=== PATIENT | male | born 1960 | race Caucasian/White ===

== ENCOUNTER 2020-05-06 14:36 | Outpatient (CLI) | payer MEDICARE, SELFPAY ==
--- NOTE | 2020-05-06 | CT_ITS ---
WS: [id number] CT CHEST TECHNIQUE: Noncontrast CT of the chest with coronal and sagittal reformatted images. CLINICAL INFORMATION: Recurrent pneumonia COMPARISON: CT March 13, 2020 DLP: 965.[address] scans at [facility] use at least one of these dose optimization techniques: automat ed exposure control; mA and/or kV adjustment per patient size (includes targeted exams where dose is matched to clinical indication); or iterative reconstruction. FINDINGS: Moderate chronic emphysematous changes. Tree-in-bud infiltrates throughout the right lung is stable i n appearance. Scattered hazy groundglass infiltrates left upper lobe, lingula and left lower lobe sli ghtly progressed compared to previous. Recommend correlation for pneumonitis. Stable noncalcified nodule in the right upper lobe measuring 6.5 mm. Subpleural nodule right lower lo be may be infectious or inflammatory new from previous measuring 5.8 mm. No mediastinal or hilar lymphadenopathy. Vascular calcification including coronary. Postoperative deyvi nges GE junction. Diffuse fatty filtration the liver. Small esophageal hiatal hernia. Adrenal glands are normal. Fatty atrophy of the pancreas. No axillary lymphadenopathy. CT/CT chest wo con [id number] IMPRESSION: 1. Slightly increased patchy groundglass infiltrates in the left lower lobe la terally, lingula and left upper lobe. Recommend correlation for pneumonitis. 2. Stable tree-in-bud infiltrates throughout the right lung can be seen with a typical infectious or inflammatory endobronchial etiologies. 3. Stable noncalcified nodule right upper lobe measuring 6.5 mm. RECOMMEND 6 M ONTH FOLLOW-UP. 4. New subpleural nodule right lower lobe measuring 5.8 mm. This may be infect ious or inflammatory in etiology. 5. No mediastinal or hilar lymphadenopathy. 6. Prior postoperative changes GE junction with small esophageal hiatal hernia . 7. Fatty infiltration the liver.
== END 2020-05-06 14:37 | disposition home or self-care (01) ==
PROVIDERS: Family Provider Family Medicine; PCP Family Medicine; Visit Provider Internal Medicine Critical Care Medicine
DX: J18.9 Pneumonia, unspecified organism (principal); R91.8 Other nonspecific abnormal finding of lung field; R91.1 Solitary pulmonary nodule; K76.0 Fatty (change of) liver, not elsewhere classified; K44.9 Diaphragmatic hernia without obstruction or gangrene
CPT/HCPCS: 71250

== ENCOUNTER 2020-06-24 11:08 | Outpatient (CLI) | payer MEDICARE, SELFPAY | END 2020-06-24 11:09 | disposition home or self-care (01) | PROVIDERS: Family Provider Family Medicine; PCP Family Medicine; Visit Provider Internal Medicine Critical Care Medicine | DX: J21.9 Acute bronchiolitis, unspecified (principal) | CPT/HCPCS: 86431 ==

== ENCOUNTER → 2020-07-18 07:06 | Outpatient (BNVA) | payer MEDICARE, SELFPAY | PROVIDERS: Family Provider Family Medicine; PCP Family Medicine; Visit Provider Nurse Practitioner Psychiatric/Mental Health | DX: F33.1 Major depressive disorder, recurrent, moderate (principal); F41.1 Generalized anxiety disorder; Z63.79 Other stressful life events affecting family and household | CPT/HCPCS: 99214 ==

== ENCOUNTER → 2020-08-20 07:30 | Outpatient (BNVA) | payer MEDICARE, SELFPAY | PROVIDERS: Family Provider Family Medicine; PCP Family Medicine; Visit Provider Nurse Practitioner Psychiatric/Mental Health | DX: F33.1 Major depressive disorder, recurrent, moderate (principal); F41.1 Generalized anxiety disorder; F43.12 Post-traumatic stress disorder, chronic | CPT/HCPCS: 99213 ==

== ENCOUNTER → 2020-10-15 07:31 | Outpatient (BNVA) | payer MEDICARE, SELFPAY | PROVIDERS: Family Provider Family Medicine; PCP Family Medicine; Visit Provider Nurse Practitioner Psychiatric/Mental Health | DX: F33.1 Major depressive disorder, recurrent, moderate (principal); F41.1 Generalized anxiety disorder; Z63.79 Other stressful life events affecting family and household | CPT/HCPCS: 99213 ==

== ENCOUNTER → 2020-12-16 07:35 | Outpatient (BNVA) | payer MEDICARE, SELFPAY | PROVIDERS: Family Provider Family Medicine; PCP Family Medicine; Visit Provider Nurse Practitioner Psychiatric/Mental Health | DX: F33.1 Major depressive disorder, recurrent, moderate (principal); F41.1 Generalized anxiety disorder; F10.10 Alcohol abuse, uncomplicated | CPT/HCPCS: 99214 ==

== ENCOUNTER → 2020-12-19 13:35 | Outpatient (BNVA) | payer MEDICARE, SELFPAY | PROVIDERS: Family Provider Family Medicine; PCP Family Medicine; Visit Provider Specialist | DX: G43.709 Chronic migraine without aura, not intractable, without status migrainosus (principal); Z87.891 Personal history of nicotine dependence | CPT/HCPCS: 64615; J0585 ==

== ENCOUNTER → 2021-01-07 08:55 | Outpatient (BNVA) | payer MEDICARE, SELFPAY | PROVIDERS: Family Provider Family Medicine; PCP Family Medicine; Visit Provider Specialist | DX: G43.711 Chronic migraine without aura, intractable, with status migrainosus (principal); Z71.89 Other specified counseling; Z87.891 Personal history of nicotine dependence | CPT/HCPCS: 64405; 64450; 99214; J1030; J3490 ==

== ENCOUNTER → 2021-01-16 10:26 | Outpatient (BNVA) | payer MEDICARE, SELFPAY | PROVIDERS: Family Provider Family Medicine; PCP Family Medicine; Visit Provider Specialist | DX: G43.711 Chronic migraine without aura, intractable, with status migrainosus (principal); Z87.891 Personal history of nicotine dependence | CPT/HCPCS: 36415; 96374; 96375; 96376; 99214 ==

== ENCOUNTER 2021-01-21 11:35 | Outpatient (CLI) | payer MEDICARE, SELFPAY | END 2021-01-21 12:35 | disposition home or self-care (01) | LOC: NSACUTE 05-05 14:20 | PROVIDERS: Family Provider Family Medicine; PCP Family Medicine; Visit Provider Specialist | DX: G43.711 Chronic migraine without aura, intractable, with status migrainosus (principal); F11.23 Opioid dependence with withdrawal; F33.1 Major depressive disorder, recurrent, moderate; Z87.891 Personal history of nicotine dependence | CPT/HCPCS: 64405; 99214; J1030; J3490 ==

== ENCOUNTER 2021-01-31 09:16 | Outpatient (CLI) | payer MEDICARE, SELFPAY ==
--- NOTE | 2021-01-31 09:27 | MR_ITS ---
WS: [id number] MRI CERVICAL SPINE NONCONTRAST TECHNIQUE: Sagittal T1, T2 and STIR imaging. Axial T2, gradient, and fiesta imaging. CLINICAL INFORMATION: M54.2 - Cervicalgia COMPARISON: CT cervical spine April 2017 FINDINGS: Straightening of the normal cervical lordosis. Slight reversal. Cord signal is normal. No high-grade central canal stenosis. Prior postoperative changes anterior cervical fusion C3-C4 with interbody fusion. Prior interbody bon y fusion at C5-C7. C2-C3: Mild osteophytic ridging. Mild left and no significant right foraminal narrowing. Mild facet a rthropathy. Spinal canal is patent. C3-C4: Anterior interbody cervical fusion. Moderate to severe left and mild right bony foraminal narr owing. Spinal canal is patent. C4-C5: Osteophytic ridging. Moderate left greater than right bony foraminal narrowing. Mild facet art hropathy. C5-C6: Osteophytic ridging. Mild to moderate left and no significant right foraminal narrowing. Tiny central osteophyte with mild central canal stenosis. C6-C7: Disc osteophytic ridging. Moderate to severe left and mild right bony foraminal narrowing. Spi nal canal is patent. C7-T1: Disc osteophytic ridging. Mild left greater than right bony foraminal narrowing. Spinal canal is patent. Visualized brain stem structures: Normal. Prevertebral soft tissues: Normal. MR/MR cervical spin wo con* [id number] IMPRESSION: 1. Straightening of the normal cervical lordosis with prior anterior interbody cervical fusion C3-4. Chronic bony fusion C5-C7. Alignment appears unchanged s 2016 2. No high-grade central canal stenosis. Cord signal is normal. 3. Mild central canal stenosis at C5-6 due to tiny central osteophyte. 4. Moderate to severe bony foraminal narrowing worse at left C3-C4, left C4-C5 , and left C6-C7.
== END 2021-01-31 09:17 | disposition home or self-care (01) ==
PROVIDERS: PCP Family Medicine; Visit Provider Specialist
DX: M48.02 Spinal stenosis, cervical region (principal); M25.78 Osteophyte, vertebrae; M43.22 Fusion of spine, cervical region
CPT/HCPCS: 72141

== ENCOUNTER → 2021-09-23 16:39 | Outpatient (BNVA) | payer MEDICARE, SELFPAY | PROVIDERS: PCP Family Medicine; Visit Provider Nurse Practitioner | DX: M54.9 Dorsalgia, unspecified (principal) | CPT/HCPCS: 81000 ==

== ENCOUNTER 2023-03-03 15:41 | Emergency (ER) | payer MEDICARE, SELFPAY ==
[2023-03-03] VITALS (9 sets, daily range): BP systolic 103–112; BP diastolic 73–79; PULSE 74–78; RESP 17–21; O2SAT 97–100
--- NOTE | 2023-03-03 15:49 | XRR_ITS ---
PROCEDURE INFORMATION: Exam: XR Chest Exam date and time: 03/03/2023 3:57 PM Age: 62 years old Clinical indication: Shortness of breath; Additional info: Dyspnea/cough TECHNIQUE: Imaging protocol: Radiologic exam of the chest. Views: 1 view. COMPARISON: CR XR chest 2V* [id number] 11/16/2020 9:51 AM FINDINGS: Lungs: There is mild atelectasis/scar in the left lung base. No acute pneumonia or edema. The lung volumes are low. Pleural spaces: Unremarkable. No pleural effusion. No pneumothorax. Heart/Mediastinum: Unremarkable. No cardiomegaly. Bones/joints: There is old fracture of the proximal left humerus. XR/XR chest 1V portable [id number] IMPRESSION: There are no acute concerning abnormalities.
--- NOTE | 2023-03-03 16:07 | ED_ITS ---
HPI - Nausea/Vomiting/Diarrhea General: Chief complaint: Nausea/Vomiting/Diarrhea Stated complaint: N/V Time Seen by Provider: 03/03/23 15:42 Source: patient Mode of arrival: ambulatory History of Present Illness: 62-year-old male who presents to the emergency room with nausea vomiting last couple of weeks. Patient has alcoholic liver cirrhosis and a history of gastric CA which was resected. Recently has had increasing swelling in his abdomen and generalized weakness and decline. He has had bilious vomiting throughout the day today. MD elicited complaint: nausea and vomiting Pertinent past history: other (Alcoholic liver cirrhosis gastric CA with resect ion) Onset (ago): week(s) Description of vomiting: bilious Associated nausea: Yes Associated abdominal pain: Yes Location of pain: Diffuse Pain consistency: intermittent Severity: moderate Quality: cramping Exacerbating factors: none Relieving factors: none Associated symtoms: Reports nausea; Denies anxiety, bloating, change in vision, chest pain, cough, diaphoresis, decreased urine output, dizziness, dysuria, epistaxis, fatigue, fecal incontinence, fevers/chills, headache(s), anorexia, malaise, myalgias, numbness, palpitations, rash, short of breath, syncope, tenesmus, tinnitus or weakness Review of Systems Const: Denies: fever(s), chills, fatigue, malaise or diaphoresis Eyes: Denies: change in vision ENMT: Denies: tinnitus or epistaxis Card: Denies: chest pain, palpitations or syncope Resp: Denies: dyspnea, productive cough or non-productive cough GI: Reports: abdominal pain, nausea and vomiting; Denies: bloating or fecal incontinence : Denies: dysuria Skin/Breast: Denies: rash or pruritus Neuro: Denies: headache(s) or dizziness Psych: Denies: anxiety PFSH ED PFSH: Medical History Alcohol abuse, episodic drinking behavior Last use 12/09/20 B12 deficiency CHF (congestive heart failure), NYHA class III DDD (degenerative disc disease) Depression with anxiety Generalized anxiety disorder History of stomach cancer Major depressive disorder, recurrent episode, moderate with anxious distress Type 2 diabetes mellitus Surgical History H/O knee surgery H/O spinal fusion H/O splenectomy H/O wrist surgery History of pancreatic surgery History of partial gastrectomy Family History Father Cancer Stomach Cancer Grandmother Cancer Stomach Cancer Social History Smoking and tobacco status: former smoker Quit status (tobacco): has quit using tobacco Year quit tobacco: 2009 - 1PPD x 25 Years Alcohol intake: current Alcohol intake frequency: holidays/special occasions only Substance/Drug Use: never Household members: spouse Marital status: Current occupational status: disabled Do you think of yourself as: Straight/Heterosexual Physical Exam Const: GENERAL APPEARANCE: cooperative and comfortable ORIENTATION/CONSCIOUSNESS: Yes awake, Yes oriented to person, Yes oriented to place and Yes oriented to time HENMT: COMMON NORMALS: normocephalic, atraumatic and hearing grossly normal bilaterally HEAD & SCALP: normocephalic and atraumatic Resp: COMMON NORMALS: normal respiratory effort, No retractions, No use of accessory muscles and clear to auscultation bilaterally AUSCULTATION: clear to auscultation bilaterally Cardio: COMMON NORMALS: regular rate, regular rhythm and No murmurs present (Cardio) RATE: regular rate RHYTHM: regular rhythm GI: COMMON NORMALS: Soft to palpation and No hepatosplenomegaly present AUSCULTATION: Yes normoactive bowel sounds PALPATION: Yes Soft to palpation, No Tenderness to palpation present (GI), No Guarding due to palpation present (GI) and Yes No hepatosplenomegaly present Extremity: COMMON NORMALS: normal to inspection, capillary refill normal, no clubbing, cyanosis or edema, no calf tenderness and no pedal edema Neuro: SENSORIUM/ORIENTATION: Yes oriented to person, Yes oriented to place and Yes oriented to time Skin: COMMON NORMALS: no rashes or lesions noted GENERAL SKIN EXAM: no rashes or lesions noted Course Vital Signs: Vital signs: Vital Signs Pulse Rate 74 03/03/23 18:36 Respiratory Rate 18 03/03/23 18:36 Blood Pressure 103/73 03/03/23 18:36 Pulse Oximetry 97 03/03/23 18:36 Oxygen Delivery Me thod Room Air 03/03/23 15:47 MDM - Nausea/Vomiting/Diarrhea Medical Decision Making Labs and imaging reviewed. There is no sign of upper GI bleed at this time. S uspect patient may have some delayed gastric emptying. His symptoms have improved we will discharge him home and make arrangements for an outpatient paracentesis in the future via his primary care doctor as needed. Medical Records I reviewed the patient's medical records. Lab Data I reviewed the patient's lab results. 03/03/23 16:16 03/03/23 16:16 Radiology Impressions Chest X-Ray 03/03/23 15:49 IMPRESSION: There are no acute concerning abnormalities. Laboratory Results WBC 6.1 10^3/uL (4.0-10.0) 03/03/23 16:16 RBC 2.95 10^6/uL (4.1-5.3) L 03/03/23 16:16 Hgb 9.6 g/dL (11.7-16.6) L 03/03/23 16:16 Hct 28.8 % (42.0-52.0) L 03/03/23 16:16 MCV 97.6 fl (80-94) H 03/03/23 16:16 MCH 32.5 pg (28.0-34.0) 03/03/23 16:16 MCHC 33.3 g/dL (30.0-36.0) 03/03/23 16:16 RDW 29.2 % (12.1-15.1) H 03/03/23 16:16 Plt Count 234 10^3/cmm (130-400) 03/03/23 16:16 MPV 11.7 fL (7.4-10.4) H 03/03/23 16:16 Neut % (Auto) 80.0 % 03/03/23 16:16 Lymph % (Auto) 13.3 % 03/03/23 16:16 [place] % (Auto) 6.2 % 03/03/23 16:16 Eos % (Auto) 0.0 % 03/03/23 16:16 Baso % (Auto) 0.2 % 03/03/23 16:16 Neut # (Auto) 4.89 10^3/uL (1.8-7.7) 03/03/23 16:16 Lymph # (Auto) 0.8 10^3/uL (0.8-4.8) 03/03/23 16:16 [place] # (Auto) 0.4 10^3/uL (0.2-0.9) 03/03/23 16:16 Eos # (Auto) 0.0 10^3/uL (0.0-0.8) 03/03/23 16:16 Baso # (Auto) 0.0 10^3/uL (0.0-0.1) 03/03/23 16:16 Nucleated RBC % (auto) 0 % 03/03/23 16:16 Nucleated RBCs # 0.0 /100WBC 03/03/23 16:16 Sodium 137 mmol/L (136-145) 03/03/23 16:16 Potassium 3.7 mmol/L (3.5-5.1) 03/03/23 16:16 Chloride 107 mmol/L (98-107) 03/03/23 16:16 Carbon Dioxide 18 mmol/L (22-29) L 03/03/23 16:16 Anion Gap 15.7 (5-19) 03/03/23 16:16 BUN 16 mg/dL (8-23) 03/03/23 16:16 Creatinine 0.9 mg/dL (0.7-1.2) 03/03/23 16:16 GFR Calculation 85.0 mL/min (90-130) L 03/03/23 16:16 Glucose 120 mg/dL (65-115) H 03/03/23 16:16 Calculated Osmolality 286 mOsm/kg (285-295) 03/03/23 16:16 Calcium 7.7 mg/dL (8.5-10.5) L 03/03/23 16:16 Total Bilirubin 1.3 mg/dL (0.15-1.2) H 03/03/23 16:16 AST 27 U/L (0-40) 03/03/23 16:16 ALT 27 U/L (0-41) 03/03/23 16:16 Alkaline Phosphatase 145 U/L (40-130) H 03/03/23 16:16 Ammonia 32 umol/L (16-60) 03/03/23 17:03 Total Protein 6.2 g/dL (6.6-8.7) L 03/03/23 16:16 Albumin 2.8 g/dL (3.5-5.2) L 03/03/23 16:16 Globulin 3.4 g/dL (1.3-4.6) 03/03/23 16:16 Discharge Plan Discharge Patient Disposition: Home Clinical Impression: Nausea & vomiting, Alcoholic cirrhosis of liver Condition: Stable Prescriptions: New promethazine 12.5 mg tablet 12.5 mg PO Q6H PRN (Reason: nausea and vomiting) Qty: 14 0RF No Action lidocaine 4 % Adhesive Patch,Medicated 1 patch TOPICAL DAILY loperamide 2 mg capsule 2 mg PO QID PRN (Reason: Diarrhea) naloxone [Narcan] 0.4 mg/mL Solution 0.4 mg SUBCUT Q2M PRN (Reason: Opioid Overdose) Rx Instructions: NTExceed 10 mg total dose/episode ondansetron HCl 4 mg tablet 4 mg PO Q6H PRN (Reason: Nausea) bismuth subsalicylate [Bismuth] 262 mg Tablet,Chewable 2 tab PO Q1H PRN (Reason: Nausea) Rx Instructions: do not exceed 16 tabs per 24 hrs mupirocin 2 % ointment 1 applic TOPICAL DAILY gabapentin 100 mg capsule 100 mg PO Q12H trolamine salicylate [Aspercreme] 10 % Cream 1 applic TOPICAL DAILY PRN (Reason: pain) midodrine 10 mg Tablet 10 mg PO TID Rx Instructions: do not give last dose of day after 6PM or within 4 hrs of bedtime Desitin 40 % Paste 1 applic TOPICAL BID lactulose 20 gram/30 mL Solution 30 g PO TID tramadol 50 mg Tablet 50 mg PO Q6H PRN (Reason: Pain) triamcinolone acetonide 0.1 % cream 1 applic TOPICAL BID Discharge Orders: Discharge ED (Routine); Ordered 03/03/23 Ordered By: Bhavin Monet Referrals: Shelton Gleason [Primary Care Provider] - Discharge Diet: Advance as tolerated Discharge Activity: Increase activity as tolerated Patient Instructions: Opioid Safety, Pain Management Activity Restrictions/Additional Instructions: You are seen today with nausea and vomiting. Recommend you use promethazine as needed. Continue your other medications. Follow-up with your primary care doctor. Coding Level of Care Code ED Hydramatic Mechanic for Bharati Mcdowell
[2023-03-03] MEDS: sodium chloride 0.9% 1,000 ML 999 ML IV (16:17)
[2023-03-03] MEDS: ondansetron 2 mg/ML SDV 2 mL 4 MG IVP (16:18)
[2023-03-03 16:22] LABS: Basophils % 0.2 %; Hematocrit 28.8 % (42.0-52.0); Hemoglobin 9.6 g/dL (11.7-16.6); Lymphocytes # 0.8 10^3/uL (0.8-4.8); Lymphocytes % 13.3 %; Mean Corpuscular HGB Conc 33.3 g/dL (30.0-36.0); Mean Corpuscular Hemoglobin 32.5 pg (28.0-34.0); Mean Corpuscular Volume 97.6 fl (80-94); Mean Platelet Volume 11.7 fL (7.4-10.4); Monocytes # 0.4 10^3/uL (0.2-0.9); Monocytes % 6.2 %; Neutrophils # 4.89 10^3/uL (1.8-7.7); Nucleated Red Blood Cells % 0 %; Platelet Count 234 10^3/cmm (130-400); Red Blood Count 2.95 10^6/uL (4.1-5.3); Red Cell Distribution Width 29.2 % (12.1-15.1); White Blood Count 6.1 10^3/uL (4.0-10.0)
--- NOTE | 2023-03-03 16:28 | PC.NURSE ---
Pt hooked up to continuous bedside cardiac monitoring.
--- NOTE | 2023-03-03 16:32 | ECG_ITS ---
[facility] Test Date: 2023-03-03 Pat Name: Nino Prakash Department: Room: Gender: Male Nurses Aide: : 1960 Requested By: Bhavin Archuleta Order Number: [id number] Janelle MD: Iqra Biswas M.D. Measurements Intervals [place] Rate: 76 P: 72 MO: 174 QRS: 17 QRSD: 73 T: 10 QT: 377 QTc: 425 Interpretive Statements SINUS RHYTHM LOW QRS VOLTAGE IN EXTREMITY LEADS [QRS DEFLECTION < 0.5 mV IN LIMB LEADS] No previous ECG available for comparison Electronically Signed On 03-05-2023 1:29:22 CDT by Iqra Biswas M.D. [email or web address]
[2023-03-03 16:51] LABS: Alanine Aminotransferase 27 U/L (0-41); Albumin Level 2.8 g/dL (3.5-5.2); Alkaline Phosphatase 145 U/L (40-130); Anion Gap 15.7 (5-19); Aspartate Amino Transferase 27 U/L (0-40); Blood Urea Nitrogen 16 mg/dL (8-23); Calcium 7.7 mg/dL (8.5-10.5); Carbon Dioxide 18 mmol/L (22-29); Chloride 107 mmol/L (98-107); Globulin 3.4 g/dL (1.3-4.6); Glucose 120 mg/dL (65-115); Osmolality Calculated 286 mOsm/kg (285-295); Potassium 3.7 mmol/L (3.5-5.1); Sodium 137 mmol/L (136-145); Total Bilirubin 1.3 mg/dL (0.15-1.2); Total Protein 6.2 g/dL (6.6-8.7)
[2023-03-03 17:25] LABS: Ammonia 32 umol/L (16-60)
== END 2023-03-03 18:40 | disposition home or self-care (01) ==
PROVIDERS: Emergency Provider Family Medicine; PCP Family Medicine
DX: K70.30 Alcoholic cirrhosis of liver without ascites (principal); I50.9 Heart failure, unspecified; E11.9 Type 2 diabetes mellitus without complications; Z87.891 Personal history of nicotine dependence; R11.2 Nausea with vomiting, unspecified
CPT/HCPCS: 71045; 80053; 82140; 85025; 93005; 96361; 96374; 99285; J2405; J7030

== ENCOUNTER 2023-03-08 08:04 | Day surgery (SDC) | payer MEDICARE, SELFPAY ==
[2023-03-05 13:26] VITALS: BMI 20.7
--- NOTE | 2023-03-08 08:11 | US_ITS ---
WS: [id number] ULTRASOUND-GUIDED [id number] PARACENTESIS Procedure, risks, and complications have been explained to the patient. Consent is obtained. Utilizing aseptic technique and 1% buffered lidocaine, a small dermatome was made through which a 5 F rench Yueh catheter was inserted. Approximately 5800 ml of clear peritoneal fluid was obtained witho ut difficulty. No complications encountered. US/US paracentesis abd w [id number] IMPRESSION: Uncomplicated paracentesis yielding 5800 ml of peritoneal fluid.
[2023-03-08 08:22] VITALS: BP 101/69; PULSE 90; RESP 18; TEMP 36.3; O2SAT 95
[2023-03-08 08:52] LABS: INR 1.33 (0.8-1.2)
== END 2023-03-08 10:21 | disposition home or self-care (01) ==
LOC: GILAB 08:10
PROVIDERS: Radiology Diagnostic Radiology; PCP Family Medicine; Visit Provider Nurse Practitioner Family
PROC: (CPT 49082; principal; 2023-03-08 09:00)
DX: R18.8 Other ascites (principal)
CPT/HCPCS: 36415; 49083; 85610

== ENCOUNTER 2023-03-12 09:40 | Outpatient (CLI) | payer MEDICARE, SELFPAY ==
[2023-03-12 10:20] LABS: Basophils % 0.5 %; Eosinophils # 0.2 10^3/uL (0.0-0.8); Eosinophils % 2.8 %; Hematocrit 22.1 % (42.0-52.0); Hemoglobin 7.4 g/dL (11.7-16.6); Lymphocytes # 0.9 10^3/uL (0.8-4.8); Lymphocytes % 14.7 %; Mean Corpuscular HGB Conc 33.5 g/dL (30.0-36.0); Mean Corpuscular Hemoglobin 32.2 pg (28.0-34.0); Mean Corpuscular Volume 96.1 fl (80-94); Mean Platelet Volume 11.6 fL (7.4-10.4); Monocytes # 0.7 10^3/uL (0.2-0.9); Monocytes % 12.2 %; Neutrophils # 4.21 10^3/uL (1.8-7.7); Neutrophils % 69.5 %; Nucleated Red Blood Cells % 0 %; Platelet Count 335 10^3/cmm (130-400); Red Cell Distribution Width 24.4 % (12.1-15.1); White Blood Count 6.1 10^3/uL (4.0-10.0)
== END 2023-03-12 09:41 | disposition home or self-care (01) ==
PROVIDERS: PCP Family Medicine; Visit Provider Internal Medicine
DX: Z01.89 Encounter for other specified special examinations (principal)
CPT/HCPCS: 85025